=== PATIENT | male | born 2000 | race Caucasian/White ===

== ENCOUNTER 2023-09-22 06:29 | Day surgery (SDC) | payer BC ==
[2023-09-18 10:28] VITALS: BMI 27.1
[~2023-09-22 06:29] MED LIST: Dexmedetomidine 200 MCG/2 ML VIAL ONE
[2023-09-22] MEDS ORDERED: PROPOFOL 20 ML ONE (08:03)
[2023-09-22] MEDS ORDERED: Midazolam HCl 2 mg/2 ml Vial ONE ×2 (08:03→08:32)
[2023-09-22] MEDS ORDERED: Lidocaine 1% PF 5 ML VIAL ONE ×2 (08:03→08:04)
[2023-09-22] MEDS ORDERED: Dexamethasone 20 MG/5 ML VIAL ONE (08:03)
[2023-09-22] MEDS ORDERED: Rocuronium Bromide 10 MG/ML (10ML VIAL) ONE (08:03)
[2023-09-22] MEDS ORDERED: Fentanyl 250 MCG/5 ML VIAL ONE (08:03)
[2023-09-22] MEDS ORDERED: Ondansetron PF 4 MG/2 ML Vial ONE (08:03)
[2023-09-22] MEDS ORDERED: SUGAMMADEX SODIUM 200 MG/2 ML VIAL ONE (08:58)
== END 2023-09-22 11:10 | disposition home or self-care (01) ==
LOC: CSHSDC 06:29
PROVIDERS: ATTEND Otolaryngology Otolaryngic Allergy
PROC: 0CTPXZZ Resection of Tonsils, External Approach (ICD-10-PCS; principal; 2023-09-22)
PROC: 0CTQ0ZZ Resection of Adenoids, Open Approach (ICD-10-PCS; principal; 2023-09-22)
DX: J35.01 Chronic tonsillitis (principal); G43.909 Migraine, unspecified, not intractable, without status migrainosus; F41.9 Anxiety disorder, unspecified; Z79.890 Hormone replacement therapy; Z79.899 Other long term (current) drug therapy
CPT/HCPCS: 88304; J1100; J2250; J2405; J2704; J3010